=== PATIENT | female | born 1995 | race Caucasian/White ===

== ENCOUNTER 2017-12-01 17:32 | Emergency (ER) | payer BC, OTHER ==
[~2017-12-01] VITALS: Ht 179.1 cm; Wt 80.7 kg
[~2017-12-01 17:32] MED LIST: AMPH10TA2 PO
[2017-12-01 17:44] VITALS: TEMP 36.8; Ht 179.1 cm; Wt 80.7 kg
[2017-12-01] MEDS ORDERED: BUPR-79 PO (17:56)
--- NOTE | 2017-12-01 18:05 | DIAGNOSTIC IMAGING REPORT ---
L SHOULDER MIN 2 VIEWS ROUTINE CLINICAL HISTORY: 22 years-old Female presenting with L shoulder pain s/p fall. TECHNIQUE: Internal rotation, external rotation, Grashey views of the left shoulder were obtained. COMPARISON: None. FINDINGS: Glenohumeral and acromioclavicular joints congruent. No degenerative change. No acute fracture or malalignment. No subluxation of the humeral head. No radiographic soft tissue abnormality. Visualized portion of the left hemithorax normal. Clavicle normal. IMPRESSION: No acute osseous injury of the left shoulder. Electronically signed by: Eber Mckay M.D. 12/01/2017 6:04 PM Dictated Date/Time: 12/01/2017 6:03 PM
[2017-12-01] MEDS ORDERED: IBUPROFEN 600 MG TAB PO STA (18:24)
[2017-12-01] MEDS ORDERED: TRAMADOL HCL 50 MG HOME PACK PO ONE (18:30)
[2017-12-01] MEDS ORDERED: TRAM-10 PO ×2 (18:31→18:44)
[2017-12-01 18:48] VITALS: BP 115/57; PULSE 67; O2SAT 96
--- NOTE | 2017-12-01 18:58 | EMERGENCY ROOM VISIT NOTE ---
History First contact with patient: 17:48 Chief Complaint: SHOULDER PAIN Stated Complaint: PAIN IN L ROTATOR CUFF,SHOOTING PAIN DOWN TO HAND History of Present Illness The patient is a 22 year old female who presents to the Emergency Room with complaints of left shoulder pain with tingling radiating down her left arm to her hand and fingers. The patient reports that she slipped on snow and fell with her left arm over the rim of a garbage can. She reports an abrasion to the arm pit. The patient reports that she had a left acromioclavicular separation in 2016 that did not require surgical repair. She did undergo physical therapy for a while, and has not had any other significant problems with her injury. The patient reports that she does have mild discomfort radiating into the left anterior chest. She denies any neck pain or significant posterior shoulder/back pain. The patient is [id number], and rates her discomfort a 4 out of 10. Review of Systems 10 system review was performed and was negative except for pertinent positives and negatives as indicated in history of present illness Past Medical/Surgical History Medical Problems: (1) Concussion (2) Migraine Family History FH: cancer No pertinent family history Social History Smoking Status: Never Smoker Alcohol Use: occasionally Marital Status: single Housing Status: lives with roommate Occupation Status: [employer] student Current/Historical Medications Scheduled Bupropion (Wellbutrin Sr), 150 MG PO DAILY Scheduled PRN Tramadol (Ultram), 1-2 TAB PO Q4H PRN for Pain Allergies Coded Allergies: Lactose. (Verified Allergy, Intermediate, GI SYMPTOMS, 12/01/17) POLLEN (Verified Allergy, Intermediate, ITCHY EYES, SNEEZING, RUNNY NOSE, CONGESTION, 12/01/17) Physical Exam Vital Signs Date Time Temp Pulse Resp B/P (MAP) Pulse Ox O2 Delivery O2 Flow Rate FiO2 12/01/17 18:48 67 18 115/57 96 12/01/17 17:44 36.8 68 16 108/65 98 Room Air Physical Exam CONSTITUTIONAL: Healthy and well nourished. Alert and oriented X 3 with positive affect. HEENT: Normocephalic, atraumatic. Pupils equal, round and reactive. NECK: Full active range of motion without discomfort. RESPIRATORY: Clear to auscultation bilaterally with no wheezing, crackles, rhonchi or stridor. CARDIOVASCULAR: Regular rate and rhythm with no murmurs, rubs or gallops. MUSCULOSKELETAL: Examination shows an abrasion in the left axilla. Otherwise she has generalized mild discomfort to palpation about the anterior and posterior shoulder and acromioclavicular joint. She is nontender to palpation through the trapezius and scapular region. No focal tenderness through the bicipital groove or biceps tendons/musculature. No focal tenderness through the elbow. Range of motion of the shoulder does cause discomfort. Distal pulses are intact. INTEGUMENTARY: No rash or other significant dermatologic conditions noted. NEUROLOGIC: No focal neurologic deficits noted. Left hand and fingers, as well as deltoid sensation are intact. Medical Decision & Procedures ER Provider Diagnostic Interpretation: My interpretation of left shoulder x-rays does not show any acute fractures or dislocation. Radiologist report is as follows: L SHOULDER MIN 2 VIEWS ROUTINE CLINICAL HISTORY: 22 years-old Female presenting with L shoulder pain s/p fall. TECHNIQUE: Internal rotation, external rotation, Grashey views of the left shoulder were obtained. COMPARISON: None. FINDINGS: Glenohumeral and acromioclavicular joints congruent. No degenerative change. No acute fracture or malalignment. No subluxation of the humeral head. No radiographic soft tissue abnormality. Visualized portion of the left hemithorax normal. Clavicle normal. IMPRESSION: No acute osseous injury of the left shoulder. Medications Administered Medications (Trade) Dose Ordered Sig/Alfredo Route Start Time Stop Time Status Last Admin Dose Admin Ibuprofen (Motrin Tab) 600 mg NOW STAT PO 12/01/17 18:24 12/01/17 18:28 DC 12/01/17 18:35 600 MG Tramadol HCl (Ultram Home Pack) 1 homepack UD ONCE PO 12/01/17 18:30 12/01/17 18:31 DC 12/01/17 18:34 1 HOMEPACK ED Course Patient history and physical exam were performed. Nurse's notes were reviewed. Vital signs were reviewed and were normal. The patient refused any analgesics on initial exam. X-rays of the left shoulder were normal. The patient was advised that she likely has an axillary plexus injury. She was encouraged to intermittently apply ice to the shoulder/axillary region. An ice pack and sling were also dispensed. She was administered ibuprofen 600 mg and Ultram 50 mg from a home pack, and provided a prescription for Ultram. She was encouraged to alternate ibuprofen and Tylenol for baseline pain relief. She was encouraged to follow-up with her home orthopedic surgeon, or local orthopedic surgeon if symptoms are not improving within the next week. The patient was happy with plan of care, and voiced understanding of all discharge instructions. The patient's current medications were reviewed. I discussed possible side effects with the Ultram. The patient denies any prior history of seizures, therefore I feel it is safe for breakthrough treatment of pain with tramadol. Patient's blood pressure is also normal. Medical Decision [place] Drug Monitoring Program Search Results: patient reviewed within database, no issues identified Impression Primary Impression: Injury of shoulder and upper arm Additional Impression: Paresthesia of left upper extremity Departure Information Prescriptions Tramadol (Ultram) 50 Mg Tab 1-2 TAB PO Q4H Y for Pain, #20 TAB For Initial Treatment Prov: Delfino Campoverde PA 12/01/17 Referrals [facility] (PCP) Patient Instructions My [facility] Problem Qualifiers Primary Impression: Injury of shoulder and upper arm Encounter type: initial encounter Laterality: left Qualified Codes: S49.92XA - Unspecified injury of left shoulder and upper arm, initial encounter
== END 2017-12-01 18:37 | disposition home or self-care (01) ==
LOC: C.EDB 17:34 → C.EDD 18:37
DX: S49.92XA Unspecified injury of left shoulder and upper arm, initial encounter (principal); R20.2 Paresthesia of skin; W00.0XXA Fall on same level due to ice and snow, initial encounter; Y92.9 Unspecified place or not applicable; G43.909 Migraine, unspecified, not intractable, without status migrainosus; Z80.9 Family history of malignant neoplasm, unspecified; Z79.899 Other long term (current) drug therapy